=== PATIENT | female | born 1995 | race American Indian/Alaskan Native ===

== ENCOUNTER 2019-02-07 15:47 | Emergency (ER) | payer MEDICAID ==
[2019-02-07 15:58] VITALS: BP 116/79; PULSE 100; RESP 18; TEMP 98.5; O2SAT 98
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
== END 2019-02-07 16:36 | disposition home or self-care (01) ==
LOC: ED 15:47
DX: S09.90XA Unspecified injury of head, initial encounter (principal); Y04.0XXA Assault by unarmed brawl or fight, initial encounter; F17.210 Nicotine dependence, cigarettes, uncomplicated